=== PATIENT | female | born 1960 | race African-American/Black ===

== ENCOUNTER 2016-06-24 12:25 | Emergency (ER) | payer SELFPAY ==
[~2016-06-24] VITALS: Ht 170.2 cm; Wt 99.8 kg
[~2016-06-24 12:25] MED LIST: NORPTMEDS CO
[2016-06-24 14:17] LABS: Albumin 3.6 g/dL (3.4-5.0); Alkaline Phosphatase 81 U/L (45-117); Anion Gap 8 (5-15); Aspartate Aminotransferase 16 U/L (15-37); BUN/Creatinine Ratio 14.9; Bilirubin, Total 0.4 mg/dL (0.2-1.0); Blood Urea Nitrogen 10 mg/dL (7-18); Calcium 9.4 mg/dL (8.5-10.1); Carbon Dioxide 28 mmol/L (21-32); Chloride 107 mmol/L (98-107); GFR African American 117 mL/min; GFR Non-African American 97 mL/min; Glucose 106 mg/dL (74-106); Potassium 4.1 mmol/L (3.5-5.1); Sodium 143 mmol/L (136-145); Total Protein 8.2 g/dL (6.4-8.2)
[2016-06-24 14:31] LABS: Basophils # (auto) 0 uL; Basophils % (auto) 0.6 % (0.0-2.0); Eosinophils # (auto) 0.1 uL; Eosinophils % (auto) 1.8 % (0.0-7.0); Hematocrit 46.7 % (36.0-46.0); Hemoglobin 15.8 g/dL (12.2-16.2); Lymphocytes # (auto) 1.8 uL; Lymphocytes % (auto) 31.4 % (10.0-50.0); Mean Corpuscular Hemoglobin 28.9 pg (28.0-32.0); Mean Corpuscular Hgb Conc. 33.9 g/dL (32.0-36.0); Mean Corpuscular Volume 85.5 fL (80.0-100.0); Mean Platelet Volume 10.4 fL (7.4-10.4); Monocytes # (auto) 0.6 uL; Monocytes % (auto) 10.2 % (0.0-12.0); Neutrophils # (auto) 3.2 uL; Platelet Count (auto) 163 10^3/uL (140-450); Red Cell Distribution Width 13.7 % (11.6-16.0); White Blood Cell 5.6 10^3/uL (4.4-10.8)
[2016-06-24 15:32] VITALS: BP 154/98
== END 2016-06-24 16:42 | disposition left against medical advice (07) ==
LOC: ER 12:25
DX: I10 Essential (primary) hypertension (principal); Z53.21 Procedure and treatment not carried out due to patient leaving prior to being seen by health care provider
CPT/HCPCS: 36415; 80053; 84484; 85025; 93005

== ENCOUNTER 2017-05-28 14:46 | Emergency (ER) | payer SELFPAY ==
[~2017-05-28] VITALS: Ht 160 cm; Wt 87.1 kg
[2017-05-28 14:58] VITALS: BP 15/105
[2017-05-28 15:47] LABS: Basophils # (auto) 0 uL; Basophils % (auto) 0.2 % (0.0-2.0); Eosinophils # (auto) 0.2 uL; Hematocrit 46.1 % (36.0-46.0); Hemoglobin 15.2 g/dL (12.2-16.2); Lymphocytes % (auto) 36.6 % (10.0-50.0); Mean Corpuscular Hemoglobin 29.2 pg (28.0-32.0); Mean Corpuscular Volume 88.4 fL (80.0-100.0); Monocytes # (auto) 0.5 uL; Monocytes % (auto) 8.6 % (0.0-12.0); Neutrophils # (auto) 2.9 uL; Neutrophils % (auto) 51.6 % (37.0-80.0); Nucleated Red Blood Cells % 0.2 %; Platelet Count (auto) 170 10^3/uL (140-450); Red Blood Cells 5.22 10^6/uL (4.0-5.20); Red Cell Distribution Width 13.9 % (11.8-14.3); White Blood Cell 5.5 10^3/uL (4.4-10.8)
[2017-05-28 16:03] LABS: Alanine Aminotransferase 21 U/L (13-56); Albumin 3.7 g/dL (3.4-5.0); Anion Gap 9 (5-15); Aspartate Aminotransferase 17 U/L (15-37); BUN/Creatinine Ratio 17.3; Blood Urea Nitrogen 13 mg/dL (7-18); Calcium 9.4 mg/dL (8.5-10.1); Carbon Dioxide 27 mmol/L (21-32); Chloride 105 mmol/L (98-107); GFR African American 102 mL/min; GFR Non-African American 85 mL/min; Glucose 82 mg/dL (74-106); Potassium 4.1 mmol/L (3.5-5.1); Sodium 141 mmol/L (136-145)
[2017-05-28 16:09] LABS: Alkaline Phosphatase 75 U/L (45-117); Bilirubin, Total 0.3 mg/dL (0.2-1.0)
== END 2017-05-29 00:05 | disposition left against medical advice (07) ==
LOC: ER 14:46
DX: M54.9 Dorsalgia, unspecified (principal); Z53.21 Procedure and treatment not carried out due to patient leaving prior to being seen by health care provider
CPT/HCPCS: 36415; 71046; 80053; 84484; 85025; 93005

== ENCOUNTER 2017-09-01 07:47 | Emergency (ER) | payer SELFPAY ==
[~2017-09-01] VITALS: Ht 160 cm; Wt 95.3 kg
[2017-09-01 07:56] VITALS: BP 169/109
[2017-09-01] MEDS ORDERED: KETOROLAC TROMETH 60MG/2ML VIAL IM ONE (08:45)
== END 2017-09-01 08:58 | disposition home or self-care (01) ==
LOC: ER 07:56
DX: S82.154A Nondisplaced fracture of right tibial tuberosity, initial encounter for closed fracture (principal); M13.861 Other specified arthritis, right knee; I10 Essential (primary) hypertension; W19.XXXA Unspecified fall, initial encounter; Y93.89 Activity, other specified; Y99.8 Other external cause status; Y92.89 Other specified places as the place of occurrence of the external cause
CPT/HCPCS: 73562; 96372; 99284; J1885

== ENCOUNTER 2018-09-05 16:05 | Emergency (ER) | payer SELFPAY ==
[~2018-09-05] VITALS: Ht 160 cm; Wt 90.7 kg
[2018-09-05] MEDS ORDERED: cloNIDine HCL 0.1 MG TAB PO ONE (16:30)
[2018-09-05 16:46] LABS: Basophils # (auto) 0.1 uL; Basophils % (auto) 1.1 % (0.0-2.0); Eosinophils # (auto) 0.2 uL; Eosinophils % (auto) 2.9 % (0.0-7.0); Hematocrit 43.9 % (36.0-46.0); Hemoglobin 14.8 g/dL (12.2-16.2); Lymphocytes # (auto) 1.8 uL; Mean Corpuscular Hgb Conc. 33.8 g/dL (32.0-36.0); Mean Corpuscular Volume 88.8 fL (80.0-100.0); Monocytes # (auto) 0.5 uL; Monocytes % (auto) 9.6 % (0.0-12.0); Neutrophils % (auto) 54.4 % (37.0-80.0); Nucleated Red Blood Cells % 0.2 %; Platelet Count (auto) 153 10^3/uL (140-450); Red Blood Cells 4.95 10^6/uL (4.0-5.20); White Blood Cell 5.5 10^3/uL (4.4-10.8)
[2018-09-05 17:00] LABS: Albumin 3.4 g/dL (3.4-5.0); Anion Gap 5 (5-15); Blood Urea Nitrogen 10 mg/dL (7-18); Calcium 9.1 mg/dL (8.5-10.1); Carbon Dioxide 27 mmol/L (21-32); Chloride 108 mmol/L (98-107); Glucose 105 mg/dL (74-106); Sodium 140 mmol/L (136-145)
[2018-09-05 17:04] LABS: Alanine Aminotransferase 17 U/L (13-56); Alkaline Phosphatase 74 U/L (45-117); Aspartate Aminotransferase 15 U/L (15-37); BUN/Creatinine Ratio 12.3; Bilirubin, Total 0.4 mg/dL (0.2-1.0); GFR African American 93 mL/min; GFR Non-African American 77 mL/min; Total Protein 7.7 g/dL (6.4-8.2)
[2018-09-05] MEDS ORDERED: SODIUM CHLORIDE 0.9% 500 ML IV ONE (23:02)
[2018-09-05] MEDS ORDERED: IOHEXOL 350 MG/ML 100ML IJ ONE (23:18)
[2018-09-06 00:11] LABS: INR 0.91 (0.9-1.15); Partial Thromboplastin Time 23.8 sec (23.64-32.05); Prothrombin Time 9.9 sec (9.06-12.60)
[2018-09-06 03:23] VITALS: BP 140/85
== END 2018-09-06 05:25 | disposition home or self-care (01) ==
LOC: ER 16:07
DX: R51 Headache (principal); R20.0 Anesthesia of skin; R42 Dizziness and giddiness; M79.605 Pain in left leg; M79.604 Pain in right leg; I10 Essential (primary) hypertension; Z85.3 Personal history of malignant neoplasm of breast
CPT/HCPCS: 36415; 70450; 71275; 73706; 80053; 83880; 84484; 85025; 85379; 85610; 85730; 93005; 93970; 94761; 96360; 96361; 99284; J7030; Q9967

== ENCOUNTER 2022-07-21 10:38 | Emergency (ER) | payer SELFPAY ==
[~2022-07-21] VITALS: Ht 160 cm; Wt 98.8 kg
[2022-07-21 11:11] VITALS: BP 170/78
[2022-07-21] MEDS ORDERED: ACETAMINOPHEN 500 MG TAB PO ONE (11:30)
[2022-07-21] MEDS ORDERED: MET25T PO (13:51)
[2022-07-21] MEDS ORDERED: AMLO-496 PO (13:51)
== END 2022-07-21 13:53 | disposition home or self-care (01) ==
LOC: ER 10:38
DX: G44.209 Tension-type headache, unspecified, not intractable (principal); I10 Essential (primary) hypertension; Z76.0 Encounter for issue of repeat prescription; Z79.899 Other long term (current) drug therapy; Z98.890 Other specified postprocedural states
CPT/HCPCS: 70450

== ENCOUNTER 2022-08-26 15:43 | Emergency (ER) | payer SELFPAY ==
[~2022-08-26] VITALS: Ht 160 cm; Wt 93.5 kg
[~2022-08-26 15:43] MED LIST changes: +AMLO-496 PO; +MET25T PO
[2022-08-26 16:47] LABS: Basophils # (auto) 0.1 10 ^3/uL (0-0.2); Basophils % (auto) 1.2 % (0.0-2.0); Eosinophils # (auto) 0.2 10 ^3/uL (0-0.8); Eosinophils % (auto) 2.5 % (0.0-7.0); Hematocrit 44.7 % (36.0-46.0); Hemoglobin 14.9 g/dL (12.2-16.2); Lymphocytes # (auto) 1.9 10 ^3/uL (0.4-5.4); Lymphocytes % (auto) 29.7 % (10.0-50.0); Mean Corpuscular Hemoglobin 28.8 pg (28.0-32.0); Mean Corpuscular Hgb Conc. 33.3 g/dL (32.0-36.0); Mean Corpuscular Volume 86.7 fL (80.0-100.0); Monocytes # (auto) 0.6 10 ^3/uL (0-1.3); Monocytes % (auto) 9.7 % (0.0-12.0); Neutrophils # (auto) 3.6 10 ^3/uL (1.6-8.6); Neutrophils % (auto) 56.9 % (37.0-80.0); Nucleated Red Blood Cells % 0.2 %; Red Blood Cells 5.16 10^6/uL (4.0-5.20); Red Cell Distribution Width 13.8 % (11.8-14.3); White Blood Cell 6.3 10^3/uL (4.4-10.8)
[2022-08-26 16:48] VITALS: BP 150/100
[2022-08-26 17:05] LABS: BUN/Creatinine Ratio 15.4 (10.0-20.0); Calcium 9.3 mg/dL (8.5-10.1); Potassium 4.3 mmol/L (3.5-5.1); Uric Acid 7.4 mg/dL (2.6-6.0)
[2022-08-26] MEDS ORDERED: KETOROLAC TROMETH 60MG/2ML VIAL IM ONE (17:15)
[2022-08-26] MEDS ORDERED: methylPREDNISolone SOD SUCC 125 MG/2 ML VL IM ONE (17:15)
[2022-08-26] MEDS ORDERED: INDO50CA82 PO (17:30)
[2022-08-26] MEDS ORDERED: COLC1CAP PO (17:30)
== END 2022-08-26 17:34 | disposition home or self-care (01) ==
LOC: ER 15:43
DX: M10.9 Gout, unspecified (principal); M79.675 Pain in left toe(s); M79.674 Pain in right toe(s); I10 Essential (primary) hypertension; Z86.2 Personal history of diseases of the blood and blood-forming organs and certain disorders involving the immune mechanism; Z98.890 Other specified postprocedural states
CPT/HCPCS: 36415; 80048; 84550; 85025; 96372; 99284; J1885; J2930

== ENCOUNTER 2022-09-14 11:27 | Emergency (ER) | payer SELFPAY ==
[~2022-09-14] VITALS: Ht 160 cm; Wt 96.4 kg
[~2022-09-14 11:27] MED LIST changes: -AMLO-496 PO; +AMLO1TAB23 PO; +COLC1CAP PO; +INDO50CA82 PO
[2022-09-14 13:04] LABS: Basophils # (auto) 0 10 ^3/uL (0-0.2); Basophils % (auto) 0.7 % (0.0-2.0); Eosinophils # (auto) 0.1 10 ^3/uL (0-0.8); Eosinophils % (auto) 2.8 % (0.0-7.0); Hematocrit 43.9 % (36.0-46.0); Hemoglobin 14.8 g/dL (12.2-16.2); Mean Corpuscular Hemoglobin 29.5 pg (28.0-32.0); Mean Corpuscular Hgb Conc. 33.8 g/dL (32.0-36.0); Mean Corpuscular Volume 87.2 fL (80.0-100.0); Monocytes # (auto) 0.6 10 ^3/uL (0-1.3); Monocytes % (auto) 12.5 % (0.0-12.0); Neutrophils # (auto) 2.3 10 ^3/uL (1.6-8.6); Nucleated Red Blood Cells % 0.1 %; Red Blood Cells 5.03 10^6/uL (4.0-5.20); Red Cell Distribution Width 14.1 % (11.8-14.3); White Blood Cell 5.1 10^3/uL (4.4-10.8)
[2022-09-14 15:00] LABS: Albumin 3.8 g/dL (3.4-5.0); Calcium 9.1 mg/dL (8.5-10.1); Potassium 4.5 mmol/L (3.5-5.1)
[2022-09-14 15:03] LABS: BUN/Creatinine Ratio 15.3 (10.0-20.0); Bilirubin, Total 0.6 mg/dL (0.2-1.0); Total Protein 7.4 g/dL (6.4-8.2)
[2022-09-14] MEDS ORDERED: KETOROLAC TROMETH 30 MG/ML 1ML VIAL IM ONE (16:45)
[2022-09-14 19:56] VITALS: BP 139/86
== END 2022-09-14 20:13 | disposition home or self-care (01) ==
LOC: ER 11:27
DX: M10.9 Gout, unspecified (principal); I10 Essential (primary) hypertension
CPT/HCPCS: 36415; 73630; 80053; 84550; 85025; 86141; 93971; 96372; 99285; J1885

== ENCOUNTER 2023-12-29 08:18 | Emergency (ER) | payer SELFPAY ==
[~2023-12-29] VITALS: Ht 170.2 cm; Wt 90.0 kg
[2023-12-29 08:52] VITALS: BP 156/90; PULSE 90; RESP 18; TEMP 98.2; O2SAT 90
[2023-12-29] MEDS: methylPREDNISolone SOD SUCC 125 MG/2 ML VL IM ONE (08:58)
[2023-12-29] MEDS: KETOROLAC TROMETH 60MG/2ML VIAL IM ONE (08:59)
== END 2023-12-29 09:38 | disposition home or self-care (01) ==
LOC: EDUNIT# 08:18 → ER 08:18 → EDBD 08:18 → ER 09:26
DX: M1A.0610 Idiopathic chronic gout, right knee, without tophus (tophi) (principal); I10 Essential (primary) hypertension; D64.9 Anemia, unspecified; Z79.899 Other long term (current) drug therapy; Z98.890 Other specified postprocedural states
CPT/HCPCS: 96372; 99284; J1885; J2919

== ENCOUNTER 2024-05-27 19:48 | Emergency (ER) | payer OTHER ==
[~2024-05-27] VITALS: Ht 160 cm; Wt 86.3 kg
[2024-05-27 20:33] VITALS: BP 153/110; PULSE 90; RESP 18; TEMP 98.1; O2SAT 98
[2024-05-27] MEDS ORDERED: INDO50CA82 PO (20:51)
[2024-05-27] MEDS ORDERED: METH4PAK PO (20:51)
--- NOTE | 2024-05-27 20:51 | ED.PDOC ---
Musculoskeletal HPI Comments 63-YEAR-OLD FEMALE PRESENTS TO ER WITH COMPLAINTS OF GOUT FLARE-UP X1 WEEK. PATIENT WITH PAST MEDICAL HISTORY SIGNIFICANT FOR GOUT REPORTS THAT SHE HAS BEEN EXPERIENCING LEFT KNEE PAIN AND LEFT FOOT PAIN X1 WEEK. STATES SHE HAS HAD SIMILAR SYMPTOMS IN THE PAST RELATED TO A GOUT FLARE-UP. DENIES USE OF MEDI CATIONS FOR CURRENT SYMPTOMS. DENIES FEVER, BODY ACHES, CHILLS, TRAUMA/FALLS OR ANY FURTHER SYMPTOMS/COMPLAINTS Chief Complaint: Lower Extremity Time Seen by MD: 20:02 Primary Care Provider: [facility] Reviewed Notes: Nurses Notes, Medications, Allergies Allergies: Coded Allergies: NO KNOWN ALLERGIES (Unverified , 06/29/13) Home Meds Active Scripts Methylprednisolone (Medrol Dosepak) 4 Mg Francois, 4 MG PO UD, #21 TAB 0 Refills UAD Prov:LEE FULTON 05/27/24 Indomethacin (Indomethacin) 50 Mg Cap, 1 CAP PO TID PRN, #30 CAP 0 Refills Prov:LEE FULTON 05/27/24 Colchicine (Colchicine) 0.6 Mg Cap, 0.6 MG PO BID, #30 CAP Prov:HARRY ALVARENGA 12/29/23 Indomethacin (Indomethacin) 50 Mg Cap, 1 CAP PO TID, #30 CAP Prov:HARRY ALVARENGA 12/29/23 Colchicine (Colchicine) 0.6 Mg Cap, 0.6 MG PO BID, #24 CAP Prov:HARRY ALVARENGA 08/26/22 Indomethacin (Indomethacin) 50 Mg Cap, 1 CAP PO TID, #30 CAP Prov:HARRY ALVARENGA 08/26/22 Metoprolol Tartrate (Lopressor) 25 Mg Tb, 25 MG PO Q12HR, #40 TAB 0 Refills Prov:HARRY ALVARENGA 07/21/22 Amlodipine Besylate (Amlodipine Besylate) 10 Mg Tab, 1 TAB PO DAILY, #30 TAB 0 Refills Prov:HARRY ALVARENGA 07/21/22 Reported Medications No Reported Medication (NO REPORTED MEDICATION) Ea, 0 CO UNK, EA PATIENT HAS NO REPORTED MEDICATIONS 06/29/13 Information Source: Patient Mode of Arrival: Wheelchair Past Medical History PAST MEDICAL HISTORY: Anemia, Gout, HTN Surgical History: Surgical History (Other): 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 FILTERS History Family History Family History: Unknown Social History Smoker: Non-Smoker Alcohol: Rarely Drugs: Denies Drug Use Lives In: Home Constitutional: denies: chills, diaphoresis, fatigue, fever, malaise, sweats, weakness, others EENTM: denies: blurred vision, double vision, ear bleeding, ear discharge, ear drainage, ear pain, ear ringing, eye pain, eye redness, hearing loss, mouth pain, mouth swelling, nasal discharge, nose bleeding, nose congestion, nose pain, photophobia, tearing, throat pain, throat swelling, voice changes, others Respiratory: denies: cough, hemoptysis, orthopnea, SOB at rest, shortness of breath, SOB with excertion, stridor, wheezing, others Cardiovascular: denies: chest pain, dizzy spells, diaphoresis, Dyspnea on exertion, edema, irregular heart beat, left arm pain, lightheadedness, palpitations, PND, syncope, others Gastrointestinal: denies: abdomen distended, abdominal pain, blood streaked bowels, constipated, diarrhea, dysphagia, difficulty swallowing, hematemesis, melena, nausea, poor appetite, poor fluid intake, rectal bleeding, rectal pain, vomiting, others Genitourinary: denies: abnormal vagina bleeding, burning, dyspareunia, dysuria, flank pain, frequency, hematuria, incontinence, pain, , vagina discharge, urgency, others Neurological: denies: dizziness, fainting, headache, left sided numbness, left sided weakness, numbness, paresthesia, pre-existing deficit, right sided numbness, right sided weakness, seizure, speech problems, tingling, tremors, weakness, others Musculoskeletal: reports: others ( STATED IN HPI) Integumetry: denies: bruises, change in color, change in hair/nails, dryness, laceration, lesions, lumps, rash, wounds, others Allergic/Immunocompromised: denies: Difficulty Healing, Frequent Infections, Hives, Itching, others Hematologic/Lymphatic: denies: anemia, blood clots, easy bleeding, easy bruising, swollen glands, others Endocrine: denies: excessive hunger, excessive sweating, excessive thirst, excessive urination, flushing, intolerance to cold, intolerance to heat, unexplained weight gain, unexplained weight loss, others Psychiatric: denies: anxiety, bipolar disorder, depression, hopeless, panic disorder, schizophrenia, sleepless, suicidal, others Physical Exam General Appearance: No Apparent Distress HEENT: PERRL/EOMI Neck: Full Range of Motion, Non-Tender, Normal Respiratory: Chest Non-Tender, Lungs Clear, No Accessory Muscle Use, No Respiratory Distress, Normal Breath Sounds Cardiovascular: No Murmur, No Gallop, Regular Rate/Rhythm Breast Exam: Deferred Gastrointestinal: NOT DONE Genitalia: Deferred Pelvic: Deferred Rectal: Deferred Extremities: Normal capillary refill, Normal range of motion Musculoskeletal : Extremity Location: Other (TTP/MILD SWELLING NOTED TO LEFT FIRST MP JOINT. TTP/MILD SWELLING TO LEFT ANTERIOR KNEE, NO ERYTHEMA/SWELLING TO LEFT KNEE. NO DEFORMITIES NOTED. PULSES INTACT. GAIT SLOWED DUE TO PAIN LOCALIZED TO LEFT 1ST MP JOINT AND LEFT ANTERIOR KNEE. ) Neurologic: Alert, No Motor Deficits, Normal Affect, Normal Mood, No Sensory Deficits Cerebellar Function: Normal Reflexes: Normal Skin: Dry, Normal Color, Warm Peripheral Pulses: 2+ dorsalis pedis (R), 2+ dorsalis pedis (L), 2+ Radial (R), 2+ Radial (L), 2+ Brachial (R), 2+ Brachial (L) Lymphatic: No Adenopathy Was a procedure done? Was a procedure done?: No Sedation Sedation?: No Differential Diagnosis EXT Differential Diagnosis: Cellulitis, Fracture, Dislocation, Neurovascular injury X-Ray, Labs, Meds, VS Vital Signs Date Time Temp Pulse Resp B/P (MAP) Pulse Ox O2 Delivery O2 Flow Rate FiO2 05/27/24 20:33 90 18 98 Room Air 05/27/24 20:33 98.1 90 18 153/110 (124) 98 98.1 05/27/24 20:08 98.1 90 18 153/110 (124) 98 TORADOL 60 MG IM ORDERED SOLU-MEDROL 125 MG IM ORDERED PATIENT NEUROVASCULARLY INTACT AND REPORTED IMPROVEMENT IN SYMPTOMS PRIOR TO DISCHARGE DIET/LIFESTYLE EDUCATION DISCUSSED ADVISED TO FOLLOW UP WITH PCP IN 1-2 DAYS PATIENT VERBALIZED UNDERSTANDING AND AGREEABLE WITH CURRENT PLAN OF CARE ADVISED TO RETURN TO ER IMMEDIATELY IF SYMPTOMS WORSEN Time of 1ST Reevaluation: 20:20 Reevaluation 1ST: N/A Patient Education/Counseling: Diagnosis, Treatment, Prognosis, Need For Follow Up Family Education/Counseling: No Family Present Departure 1 Departure Time of Disposition: 20:42 Impression: Primary Impression: Gout of left knee Qualified Codes: M10.9 - Gout, unspecified Additional Impression: Gout of left foot Qualified Codes: M10.9 - Gout, unspecified Disposition: HOME / SELF CARE / HOMELESS Condition: Stable e-Prescriptions Methylprednisolone (Medrol Dosepak) 4 Mg Francois 4 MG PO UD, #21 TAB 0 Refills UAD Prov: LEE FULTON 05/27/24 Indomethacin (Indomethacin) 50 Mg Cap 1 CAP PO TID PRN, #30 CAP 0 Refills Prov: LEE FULTON 05/27/24 Discharged With: Friend Critical Care Note Critical Care Time?: No Stability Stability form required: No Heart Score Heart Score: Heart Score Response (Comments) Value History N/A 0 EKG N/A 0 Age N/A 0 Risk Factors N/A 0 Troponin N/A 0 Total 0 LEE FULTON May 27, 2024 20:51
[2024-05-27] MEDS: KETOROLAC TROMETH 60MG/2ML VIAL IM ONE (21:16)
[2024-05-27] MEDS: methylPREDNISolone SOD SUCC 125 MG/2 ML VL IM ONE (21:17)
== END 2024-05-27 21:41 | disposition home or self-care (01) ==
LOC: ER 19:48
DX: M10.072 Idiopathic gout, left ankle and foot (principal); I10 Essential (primary) hypertension; Z79.899 Other long term (current) drug therapy; D64.9 Anemia, unspecified; Z98.890 Other specified postprocedural states
CPT/HCPCS: 96372; 99284; J1885; J2919

== ENCOUNTER 2024-10-02 08:39 | Emergency (ER) | payer SELFPAY ==
[~2024-10-02] VITALS: Ht 160 cm; Wt 90.0 kg
[~2024-10-02 08:39] MED LIST changes: +METH4PAK PO
--- NOTE | 2024-10-02 09:08 | ED.PDOC ---
History of Present Illness HPI Comments 64 year old female presents to the ED for the c/c of 01/24 Left Knee pain. Pt states that she experienced a mechanical fall 1x month ago, and pain has progressively worsened since. Pt states her pain has become unbearable. No gross abnormality noted, only pain upon palpitation. Denies skin color changes around the knee Denies masses around the knee Denies popping/locking/giving out of the knee Denies fever chills night sweats nausea vomiting Denies previous surgeries to the knee nor significant injury Chief Complaint: Lower Extremity Time Seen by MD: 08:56 Primary Care Provider: [facility] Reviewed Notes: Nurses Notes, Medications, Allergies Allergies: Coded Allergies: NO KNOWN ALLERGIES (Unverified , 06/29/13) Home Meds Active Scripts Diclofenac Sodium (Topical) (Voltaren Arthritis Pain) 1 % Gel, 1 GRAMS EX Q6HPRN PRN for 10 Days, #60 GRAMS 0 Refills Prov:HERMELINDA LINARES PIANO ASSEMBLER 10/02/24 Methylprednisolone (Medrol Dosepak) 4 Mg Francois, 4 MG PO UD, #21 TAB 0 Refills UAD Prov:LEE FULTON 05/27/24 Indomethacin (Indomethacin) 50 Mg Cap, 1 CAP PO TID PRN, #30 CAP 0 Refills Prov:LEE FULTON 05/27/24 Colchicine (Colchicine) 0.6 Mg Cap, 0.6 MG PO BID, #30 CAP Prov:HARRY ALVARENGA 12/29/23 Indomethacin (Indomethacin) 50 Mg Cap, 1 CAP PO TID, #30 CAP Prov:HARRY ALVARENGA 12/29/23 Colchicine (Colchicine) 0.6 Mg Cap, 0.6 MG PO BID, #24 CAP Prov:HARRY ALVARENGA 08/26/22 Indomethacin (Indomethacin) 50 Mg Cap, 1 CAP PO TID, #30 CAP Prov:HARRY ALVARENGA 08/26/22 Metoprolol Tartrate (Lopressor) 25 Mg Tb, 25 MG PO Q12HR, #40 TAB 0 Refills Prov:HARRY ALVARENGA 07/21/22 Amlodipine Besylate (Amlodipine Besylate) 10 Mg Tab, 1 TAB PO DAILY, #30 TAB 0 Refills Prov:HARRY ALVARENGA 07/21/22 Reported Medications No Reported Medication (NO REPORTED MEDICATION) Ea, 0 CO UNK, EA PATIENT HAS NO REPORTED MEDICATIONS 06/29/13 Information Source: Patient Mode of Arrival: Wheelchair Severity: Moderate Timing: Days Duration: Since onset, Days Prehospital treatment: None Past Medical History PAST MEDICAL HISTORY: Anemia, Gout, HTN 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 Pertinent ELECTRICAL CONTROLS TECHNICIAN History Family History Family History: Unknown Social History Smoker: Non-Smoker Alcohol: Rarely Drugs: Denies Drug Use Lives In: Home Constitutional: denies: chills, diaphoresis, fatigue, fever, malaise, sweats, weakness, others EENTM: denies: blurred vision, double vision, ear bleeding, ear discharge, ear drainage, ear pain, ear ringing, eye pain, eye redness, hearing loss, mouth pain, mouth swelling, nasal discharge, nose bleeding, nose congestion, nose pain, photophobia, tearing, throat pain, throat swelling, voice changes, others Respiratory: denies: cough, hemoptysis, orthopnea, SOB at rest, shortness of breath, SOB with excertion, stridor, wheezing, others Cardiovascular: denies: chest pain, dizzy spells, diaphoresis, Dyspnea on exertion, edema, irregular heart beat, left arm pain, lightheadedness, palpitations, PND, syncope, others Gastrointestinal: denies: abdomen distended, abdominal pain, blood streaked bowels, constipated, diarrhea, dysphagia, difficulty swallowing, hematemesis, melena, nausea, poor appetite, poor fluid intake, rectal bleeding, rectal pain, vomiting, others Genitourinary: denies: abnormal vagina bleeding, burning, dyspareunia, dysuria, flank pain, frequency, hematuria, incontinence, pain, , vagina discharge, urgency, others Neurological: denies: dizziness, fainting, headache, left sided numbness, left sided weakness, numbness, paresthesia, pre-existing deficit, right sided numbness, right sided weakness, seizure, speech problems, tingling, tremors, weakness, others Musculoskeletal: reports: others (knee pain); denies: back pain, gout, joint pain, joint swelling, muscle pain, muscle stiffness, neck pain Integumetry: denies: bruises, change in color, change in hair/nails, dryness, laceration, lesions, lumps, rash, wounds, others Allergic/Immunocompromised: denies: Difficulty Healing, Frequent Infections, Hives, Itching, others Hematologic/Lymphatic: denies: anemia, blood clots, easy bleeding, easy bruising, swollen glands, others Endocrine: denies: excessive hunger, excessive sweating, excessive thirst, excessive urination, flushing, intolerance to cold, intolerance to heat, unexplained weight gain, unexplained weight loss, others Psychiatric: denies: anxiety, bipolar disorder, depression, hopeless, panic disorder, schizophrenia, sleepless, suicidal, others All Other Systems: Reviewed and Negative Physical Exam General Appearance: Moderate Distress, Normal, Obese HEENT: Normal ENT Inspection, Pharynx Normal, TMs Normal Neck: Full Range of Motion, Non-Tender, Normal, Normal Inspection Respiratory: Chest Non-Tender, Lungs Clear, No Accessory Muscle Use, No Respiratory Distress, Normal Breath Sounds Cardiovascular: No Edema, No JVD, No Murmur, No Gallop, Normal Peripheral Pulses, Regular Rate/Rhythm Breast Exam: Deferred Gastrointestinal: Non Tender, No Pulsatile Mass, Normal Bowel Sounds, Soft Genitalia: Deferred Pelvic: Deferred Rectal: Deferred Extremities: No calf tenderness, Normal capillary refill, Normal inspection, Normal range of motion, Non-tender, No pedal edema Musculoskeletal : Location: Left Extremity Location: Knee (No agross abnormaility, Pain to the patellar tendon on palpation, unable to fully extend knee due to pain) Apperance: Normal Neurologic: Alert, No Motor Deficits, Normal Mood Cerebellar Function: Normal Reflexes: Normal Skin: Dry, Normal Color, Warm Lymphatic: No Adenopathy Was a procedure done? Was a procedure done?: Yes Sedation Sedation?: No Other Procedure Procedure knee injection. See procedure note below Notes X-ray of the knee ordered. X-ray interpreted by radiologist and reviewed by me IMPRESSION: Degenerative changes likely related to osteoarthritis are noted at the knee. No fracture, is seen. If there is high index of suspicion, consider MRI. Patient was also informed that we recommend against routine use of the intra articular glucocorticoid injections for knee pain. Patient was informed that we limit the use of intra-articular injections to patients with moderate to severe pain and to have failed other treatment options and who are seeking short-term pain relief. Patient was also informed that this procedure is not routinely recommended in clinical practice and patient should not receive multiple nor repetitive injections. Patient was also informed that serial injections like every 3 months are discouraged due to potential negative effects on the progression of cartilage damage in the knee osteoarthritis patient's Risks and benefits of steroid injections were discussed with patient and patient gave verbal consent to the procedure. Left knee lateral approach The patient's left knee was prepped in the usual sterile fashion using alcohol and iodine. A 25-gauge, 1-1/2 inch needle into the knee joint using the lateral approach. Through the needle I injected a solution containing 1 cc 40 mg of Kenalog and 4 cc of 1% lidocaine. The needle was removed and a sterile dressing (Band-Aid) was applied patient tolerated procedure well Prescribed Mobic for the management of acute knee pain. Start with 7.5 mg daily and may increase to 15 mg daily as needed for pain Voltaren gel as needed for the pain Recommend light walking under the sun for 30 minutes a day Avoiding running jogging high-impact activities Stretch as tolerated Ice 3x/day for 5 minutes Wear knee brace for stability as needed, elevate leg swelling aggravated Differential Dx Considerations may include: DJD, OA X-Ray, Labs, Meds, VS Vital Signs Date Time Temp Pulse Resp B/P (MAP) Pulse Ox O2 Delivery O2 Flow Rate FiO2 10/02/24 10:37 98.4 76 16 149/76 (100) 100 98.4 10/02/24 10:00 98.0 99 18 126/79 (95) 100 98.0 10/02/24 10:00 99 18 100 Room Air 10/02/24 08:52 98.0 99 18 126/79 (95) 100 98.0 PATIENT: RAFAEL BRAMBILA ACCT: [id number] UNIT: [id number] : 1960 LOC: ER ROOM / BED: / AGE / SEX: 64 / F ADM STATUS: REG ER SERVICE [id number] ORDERING PHYSICIAN: HERMELINDA LINARES NP PROCEDURE(s): LKNE4 - L KNEE 4V XRAY REASON: ORDER NUMBER(s): [id number], ACCESSION NUMBER(s): [id number] CLINICAL INDICATION: Pain TECHNIQUE: XY L KNEE 4V XRAY Comparison: None FINDINGS/IMPRESSION: : There is no evidence of acute fracture or dislocation. Soft tissues are unremarkable. Degenerative changes of the patella. X-Ray, Labs, Meds, VS Comment 64 year old female presents to the ED for the c/c of 10/10 Left Knee pain. Patient arrives alert and oriented, ABC's intact, afebrile, vital signs stable, saturating well in room air X-Ray ordered and Pending Diagnostic imaging ordered by me and results interpreted by radiology : FINDINGS/IMPRESSION: : There is no evidence of acute fracture or dislocation.Soft tissues are unremarkable.Degenerative changes of the patella. Prescribed NSAIDs for the management of acute knee pain. Take ibuprofen p.o. 600 mg every 8 hours with food as needed for pain Recommend light walking under the sun for 30 minutes a day Avoiding running jogging high-impact activities Stretch as tolerated Ice 3x/day for 5 minutes Wear knee brace for stability as needed, elevate leg swelling aggravated Additional MDM Review of External, Non-ED records: External records reviewed. Discussion with independent historian (EMS, family) history obtained from the patient/parents (if applicable) at bedside Chronic conditions affecting care: None Social determinants of health affecting care: None Consideration of admission (observation or admission): I considered escalation of care to admission for this patient, however given the reassuring workup, the patient is safe for outpatient management. Time of 1ST Reevaluation: 09:26 Reevaluation 1ST: Improved Patient Education/Counseling: Diagnosis, Treatment Family Education/Counseling: No Family Present SEPSIS Sepsis Screen Date sepsis recognized/suspect: Oct 02, 2024 Time Sepsis recognized/suspect: 08 Recent Procedure: No On Antibiotic Therapy: No Respiratory Rate >20: No Heart Rate >90: Yes Temp<36 C (96.8 F) or >38.3 C: No SBP <90 or MAP <65 mmHG: No New Acute Mental Status Change: No Is the patient on CPAP, BIPAP,: No Orders/Vitals/Labs Physician Orders L Knee 4v Xray (10/02/24 08:54) Vital Signs Date Time Temp Pulse Resp B/P (MAP) Pulse Ox O2 Delivery O2 Flow Rate FiO2 10/02/24 10:37 98.4 76 16 149/76 (100) 100 98.4 10/02/24 10:00 98.0 99 18 126/79 (95) 100 98.0 10/02/24 10:00 99 18 100 Room Air 10/02/24 08:52 98.0 99 18 126/79 (95) 100 98.0 Departure 1 Departure Time of Disposition: 11:50 Impression: Primary Impression: Arthritis of knee Disposition: HOME / SELF CARE / HOMELESS Condition: Stable e-Prescriptions Diclofenac Sodium (Topical) (Voltaren Arthritis Pain) 1 % Gel 1 GRAMS EX Q6HPRN PRN for 10 Days, #60 GRAMS 0 Refills Prov: HERMELINDA LINARES NP 10/02/24 Critical Care Note Critical Care Time?: No Stability Stability form required: No Heart Score Heart Score: Heart Score Response (Comments) Value History N/A 0 EKG N/A 0 Age N/A 0 Risk Factors N/A 0 Troponin N/A 0 Total 0 I personally scribed for HERMELINDA LINARES NP (JORDIN) on 10/02/24 at 09:08. Electronically submitted by Christos Denise ([email or web address]). I personally scribed for HERMELINDA LINARES NP (JORDIN) on 10/02/24 at 09:56. Electronically submitted by Christos Denise ([employer]). I personally scribed for HERMELINDA LINARES NP (JORDIN) on 10/02/24 at 11:09. Electronically submitted by Christos Denise ([employer]). HERMELINDA LINARES NP Oct 02, 2024 09:08
--- NOTE | 2024-10-02 09:47 | DVH ---
CLINICAL INDICATION: Pain TECHNIQUE: XY L KNEE 4V XRAY Comparison: None FINDINGS/IMPRESSION: : There is no evidence of acute fracture or dislocation. Soft tissues are unremarkable. Degenerative changes of the patella.
[2024-10-02 10:37] VITALS: BP 149/76; PULSE 76; RESP 16; TEMP 98.4; O2SAT 100
[2024-10-02] MEDS: LIDOCAINE 1% HCL (LOCAL ANESTH.) INJ 20ML MDV ID ONE (11:35)
[2024-10-02] MEDS: TRIAMCINOLONE 40MG/ML 1ML VIAL IX ONE (11:36)
[2024-10-02] MEDS ORDERED: DICL1GEL59 EX (11:51)
== END 2024-10-02 12:03 | disposition home or self-care (01) ==
LOC: ER 08:39
DX: M17.12 Unilateral primary osteoarthritis, left knee (principal); I10 Essential (primary) hypertension; M10.9 Gout, unspecified; Z79.899 Other long term (current) drug therapy
CPT/HCPCS: 20610; 73564; 99283; J2003; J3301